=== PATIENT | female | born 1935 | race African-American/Black ===

== ENCOUNTER 2022-03-21 12:04 | Inpatient (IN) | payer MEDICARE, BC, OTHER ==
[~2022-03-21] VITALS: Ht 160 cm; Wt 60.4 kg
[~2022-03-21 12:04] MED LIST: ALBUTEROL; ASPIRIN; LOSARTAN; OMEPRAZOLE; PRAVASTATIN; TYLENOL
[2022-03-21] MEDS ORDERED: ALBUTEROL (0.083%) 2.5MG/3ML NEB HHN STA (13:01)
[2022-03-21] MEDS ORDERED: AZITHROMYCIN 500 MG in DEXT 5% WATER 250 ML IV SCH (13:15)
[2022-03-21] MEDS ORDERED: CEFTRIAXONE 1 G PREMIX 50 ML IV ONE (13:15)
[2022-03-21 13:56] LABS: BASOPHILS % 1.2 % (0.0-2.0); EOSINOPHILS % 2.1 % (0.0-5.0); HEMATOCRIT. 37.1 % (36.0-48.0); LYMPHOCYTES % 24.9 % (20.0-50.0); MEAN CORPUSCULAR HEMOGLOBIN 30.4 pg (28.0-32.0); MEAN PLATELET VOLUME 8.2 fl (7.4-10.4); MONOCYTES % 9.4 % (2.0-8.0); NEUTROPHILS % 62.4 % (40.0-76.0); PLATELET 227 x1000/uL (130-400); RED BLOOD CELL COUNT 3.94 mill/uL (4.2-5.4); RED CELL DISTRIBUTION WIDTH 15.2 % (11.6-14.6)
[2022-03-21 14:09] LABS: CHLORIDE 107 mEq/L (98-107)
[2022-03-21] MEDS ORDERED: CEFTRIAXONE 1 G PREMIX 50 ML IV NR (16:45)
[2022-03-21] MEDS: IPRATROPIUM/ALBUTEROL 0.5-3(2.5)MG/3ML NEB HHN SCH (17:30)
[2022-03-21] MEDS ORDERED: ONDANSETRON HCL 4MG/2ML INJ IV PRN (17:30)
[2022-03-21] MEDS ORDERED: ACETAMINOPHEN 325MG TABLET PO PRN (17:30)
[2022-03-21] MEDS: ENOXAPARIN 30MG/0.3ML SYR SUBCUT SCH (17:57)
[2022-03-21] MEDS: METHYLPREDNISOLONE SOD SUCC 40 MG/ML VIAL IV SCH (20:50)
[2022-03-21] MEDS: METRONIDAZOLE 500 MG PREMIX 100 ML IV SCH (21:39)
[2022-03-21 23:41] LABS: CREATINE KINASE MB FRACTION 3.6 ng/mL (0.5-3.6)
[2022-03-22] MEDS: ACETYLCYSTEINE 100MG/ML 10% VIAL 4ML INH SCH (00:20)
[2022-03-22] MEDS: IPRATROPIUM/ALBUTEROL 0.5-3(2.5)MG/3ML NEB HHN SCH ×5 (00:20→21:25)
[2022-03-22 02:45] VITALS: BP 146/58
[2022-03-22] MEDS ORDERED: ALLO100T PO (03:09)
[2022-03-22] MEDS ORDERED: NIFE-32 PO (03:09)
[2022-03-22] MEDS ORDERED: METO-396 PO (03:09)
[2022-03-22] MEDS: METRONIDAZOLE 500 MG PREMIX 100 ML IV SCH ×3 (06:00→22:08)
[2022-03-22] MEDS: METHYLPREDNISOLONE SOD SUCC 40 MG/ML VIAL IV SCH ×3 (06:26→22:08)
[2022-03-22 08:00] VITALS: BP 141/66
[2022-03-22] MEDS: DOCUSATE SODIUM 250MG CAPSULE PO SCH (08:24)
[2022-03-22] MEDS ORDERED: LACTULOSE 20G/30ML UDC PO PRN (09:00)
[2022-03-22] MEDS: LOSARTAN POTASSIUM 25 MG TABLET PO SCH (10:35)
[2022-03-22] MEDS: GUAIFENESIN 600MG ER TABLET PO SCH ×2 (11:11→22:15)
[2022-03-22 11:23] LABS: BASOPHILS % 0.3 % (0.0-2.0); HEMATOCRIT. 36.7 % (36.0-48.0); LYMPHOCYTES % 19.2 % (20.0-50.0); MEAN CORPUSCULAR HEMOGLOBIN 30.4 pg (28.0-32.0); MEAN CORPUSCULAR VOLUME 93.3 fL (81.0-99.0); MEAN PLATELET VOLUME 8.7 fl (7.4-10.4); MONOCYTES % 3.8 % (2.0-8.0); NEUTROPHILS % 76.7 % (40.0-76.0); PLATELET 250 x1000/uL (130-400); RED BLOOD CELL COUNT 3.93 mill/uL (4.2-5.4); RED CELL DISTRIBUTION WIDTH 15.2 % (11.6-14.6)
[2022-03-22 11:30] LABS: CHLORIDE 106 mEq/L (98-107)
[2022-03-22 11:38] LABS: CREATINE KINASE MB FRACTION 4.6 ng/mL (0.5-3.6)
[2022-03-22 12:00] VITALS: BP 113/42
[2022-03-22] MEDS ORDERED: LEVOFLOXACIN 750MG PREMIX 150 ML IV NR (12:00)
[2022-03-22] MEDS ORDERED: FLUTICASONE/VILANTEROL 200-25 BLST.W.DEV ORI SCH (14:00)
[2022-03-22 16:00] VITALS: BP 132/70
[2022-03-22] MEDS: ENOXAPARIN 30MG/0.3ML SYR SUBCUT SCH (18:00)
[2022-03-22 20:00] VITALS: BP 147/76
[2022-03-23] VITALS: BP 139/72
[2022-03-23 04:00] VITALS: BP 141/69
[2022-03-23] MEDS: METRONIDAZOLE 500 MG PREMIX 100 ML IV SCH ×3 (06:00→22:00)
[2022-03-23] MEDS: METHYLPREDNISOLONE SOD SUCC 40 MG/ML VIAL IV SCH (06:00)
[2022-03-23 07:28] LABS: CHLORIDE 105 mEq/L (98-107)
[2022-03-23 08:00] VITALS: BP 140/53
[2022-03-23 08:07] LABS: BASOPHILS % 0.3 % (0.0-2.0); HEMOGLOBIN. 9.5 g/dL (12.0-16.0); LYMPHOCYTES % 10.6 % (20.0-50.0); MEAN CORPUSCULAR HEMOGLOBIN 30.1 pg (28.0-32.0); MEAN CORPUSCULAR VOLUME 93.3 fL (81.0-99.0); MEAN PLATELET VOLUME 8.9 fl (7.4-10.4); MONOCYTES % 2.7 % (2.0-8.0); NEUTROPHILS % 86.4 % (40.0-76.0); PLATELET 213 x1000/uL (130-400); RED BLOOD CELL COUNT 3.16 mill/uL (4.2-5.4); RED CELL DISTRIBUTION WIDTH 15.3 % (11.6-14.6)
[2022-03-23 08:11] LABS: HEMATOCRIT. 29.5 % (36.0-48.0)
[2022-03-23] MEDS: LOSARTAN POTASSIUM 25 MG TABLET PO SCH (08:56)
[2022-03-23] MEDS: DOCUSATE SODIUM 250MG CAPSULE PO SCH (08:56)
[2022-03-23] MEDS: GUAIFENESIN 600MG ER TABLET PO SCH ×2 (08:56→22:31)
[2022-03-23] MEDS ORDERED: SODIUM CHLORIDE 3% FOR INH 4ML UD NEB INH SCH (09:00)
[2022-03-23 09:01] LABS: INR 1.1; PROTHROMBIN TIME 11.4 sec (9.6-11.0)
[2022-03-23] MEDS: ACETYLCYSTEINE 100MG/ML 10% VIAL 4ML INH SCH ×2 (09:25→14:54)
[2022-03-23] MEDS: IPRATROPIUM/ALBUTEROL 0.5-3(2.5)MG/3ML NEB HHN SCH ×4 (09:25→21:30)
[2022-03-23] MEDS ORDERED: SODIUM POLYSTYRENE SULFONATE 15 G/60 ML BOT PO NR (11:00)
[2022-03-23 13:30] LABS: CREATINE KINASE 53 IU/L (26-192)
[2022-03-23 16:00] VITALS: BP 124/77
[2022-03-23 20:00] VITALS: BP 135/70
[2022-03-24] VITALS: BP 129/48
[2022-03-24] MEDS: ACETYLCYSTEINE 100MG/ML 10% VIAL 4ML INH SCH ×3 (01:14→12:00)
[2022-03-24] MEDS: IPRATROPIUM/ALBUTEROL 0.5-3(2.5)MG/3ML NEB HHN SCH ×5 (01:15→16:29)
[2022-03-24 04:00] VITALS: BP 123/69
[2022-03-24] MEDS: ENOXAPARIN 30MG/0.3ML SYR SUBCUT SCH (07:09)
[2022-03-24 07:41] LABS: BASOPHILS % 0.7 % (0.0-2.0); EOSINOPHILS % 1.8 % (0.0-5.0); HEMATOCRIT. 28.9 % (36.0-48.0); HEMOGLOBIN. 9.6 g/dL (12.0-16.0); MEAN CORPUSCULAR HEMOGLOBIN 30.6 pg (28.0-32.0); MEAN CORPUSCULAR VOLUME 92.4 fL (81.0-99.0); MEAN PLATELET VOLUME 8.4 fl (7.4-10.4); NEUTROPHILS % 52.5 % (40.0-76.0); PLATELET 218 x1000/uL (130-400); RED BLOOD CELL COUNT 3.13 mill/uL (4.2-5.4); RED CELL DISTRIBUTION WIDTH 15.2 % (11.6-14.6)
[2022-03-24 08:00] VITALS: BP 120/79
[2022-03-24] MEDS: DOCUSATE SODIUM 250MG CAPSULE PO SCH (10:24)
[2022-03-24] MEDS: GUAIFENESIN 600MG ER TABLET PO SCH (10:24)
[2022-03-24] MEDS ORDERED: LEVOFLOXACIN 500MG PREMIX 100 ML IV SCH ×2 (11:00)
[2022-03-24 12:00] VITALS: BP 97/91
[2022-03-24] MEDS ORDERED: METRONIDAZOLE 500MG TABLET PO SCH (14:00)
[2022-03-24 16:00] VITALS: BP 123/58
[2022-03-24] MEDS ORDERED: LEVOFLOXACIN 250MG PREMIX 50 ML IV SCH (17:00)
[2022-03-24] MEDS ORDERED: LEVO-65 MT (17:13)
[2022-03-24] MEDS ORDERED: DOCU250C14 PO (17:13)
[2022-03-24] MEDS ORDERED: FLUT1BLS ORI (17:13)
[2022-03-24] MEDS ORDERED: TOPUD PO (17:13)
[2022-03-24] MEDS ORDERED: METR-167 PO (17:13)
[2022-03-24] MEDS ORDERED: IPRA4AER INH (17:13)
[2022-03-24] MEDS ORDERED: GUAI600T44 PO (17:13)
[2022-03-24 17:53] VITALS: BP 123/58
== END 2022-03-24 18:30 | disposition home health service (06) | DRG 193 ==
LOC: ER 12:04 → MICUSO 14:32 → EDBEDREQ 14:42 → 7WST 03-22 02:45
PROVIDERS: ADMIT Internal Medicine Geriatric Medicine; ATTEND Internal Medicine Geriatric Medicine
PROC: 0W993ZZ Drainage of Right Pleural Cavity, Percutaneous Approach (ICD-10-PCS; principal; 2022-03-23)
DX: J18.9 Pneumonia, unspecified organism (principal); J96.00 Acute respiratory failure, unspecified whether with hypoxia or hypercapnia; N17.9 Acute kidney failure, unspecified; J90 Pleural effusion, not elsewhere classified; E44.1 Mild protein-calorie malnutrition; Z20.822 Contact with and (suspected) exposure to COVID-19; I27.20 Pulmonary hypertension, unspecified; E88.09 Other disorders of plasma-protein metabolism, not elsewhere classified; R62.7 Adult failure to thrive; E03.9 Hypothyroidism, unspecified; I12.9 Hypertensive chronic kidney disease with stage 1 through stage 4 chronic kidney disease, or unspecified chronic kidney disease; N18.9 Chronic kidney disease, unspecified; K59.00 Constipation, unspecified; E11.22 Type 2 diabetes mellitus with diabetic chronic kidney disease; I25.10 Atherosclerotic heart disease of native coronary artery without angina pectoris; E11.51 Type 2 diabetes mellitus with diabetic peripheral angiopathy without gangrene; M19.90 Unspecified osteoarthritis, unspecified site; Z88.0 Allergy status to penicillin; Z79.899 Other long term (current) drug therapy; Z95.1 Presence of aortocoronary bypass graft; Z68.23 Body mass index [BMI] 23.0-23.9, adult; Z79.82 Long term (current) use of aspirin
CPT/HCPCS: 32555; 36415; 71045; 71250; 76770; 80048; 80053; 80061; 82550; 82553; 83036; 83605; 83615; 83880; 84443; 84484; 85025; 85379; 87426; 87804; 88108; 93005; 93306; 93970; 94640; 97162; 99285; C9803; J0456; J0696; J1650; J1956; J2920; J3490; J7060; J7608